=== PATIENT | female | born 1985 ===

== ENCOUNTER 2021-06-29 00:47 | Emergency (ER) | payer SELFPAY ==
[2021-06-29 00:57] VITALS: BP 118/74
[2021-06-29] MEDS ORDERED: IBUPROFEN 600 MG TAB PO ONE (05:01)
[2021-06-29] MEDS ORDERED: predniSONE 20 MG TAB PO ONE (05:01)
[2021-06-29] MEDS ORDERED: ONDANSETRON 4 MG ODT TAB PO ONE (05:01)
--- NOTE | 2021-06-29 05:15 | Emergency Department Report ---
ED Extremity Problem HPI - General Chief complaint: Extremity Injury, Upper Stated complaint: ELECTRICITY IN LEFT WRIST/RIGHT WRIST PAIN Source: patient Mode of arrival: Ambulatory Limitations: No Limitations - History of Present Illness Initial comments: Patient is a 36-year-old female with past medical history of chronic bilateral wrist and hand carpal tunnel syndrome presents to the ED with acute exacerbation of her chronic wrist pain that radiates distally to the tip of her thumb and middle and index fingers bilaterally for the last 1 month, worse in the last 2 days. Patient states that any physical activity with the hand makes the pain worse. Patient states that she works between the 11 PM to 6 AM and using her hand the pain gets worse. Patient also request to be referred to an orthopedic surgeon for further evaluation of her chronic bilateral carpal tunnel syndrome. Patient denies dizziness, syncope, fall, traumatic injury, numbness and tingling or weakness of upper and lower extremities bilaterally, chest pain, shortness of breath, neck pain or headache. MD Complaint: extremity pain (Bilateral wrist joint pain that radiates distally to the hands bilaterally), joint paint (Bilateral wrist joint pain, history of chronic carpal tunnel syndrome) -: Gradual, year(s) (1) Location: other (Bilateral wrist joint pain) History of Same: Yes (History of chronic bilateral carpal tunnel syndrome) -: Yes arthralgia (Bilateral wrist pain), No fever, No associated dyspnea, No associated chest pain Radiation: distal Severity scale (0 -10): 8 Quality: aching, sharp Consistency: constant Improves with: nothing Worsens with: weight bearing, exertion, palpation Associated Symptoms: denies other symptoms, arthralgias (Bilateral wrist pain). denies: chest pain, shortness of breath, fever, myalgias, rash - Related Data Previous Rx's Medication Instructions Recorded Last Taken Type Gabapentin 300 mg PO BID #60 cap 06/29/21 Unknown Rx Naproxen 500 mg PO Q12H #30 tab 06/29/21 Unknown Rx predniSONE [Deltasone] 60 mg PO QDAY #15 tab 06/29/21 Unknown Rx Allergies Allergy/AdvReac Type Severity Reaction Status Date / Time No Known Allergies Allergy Verified 06/29/21 05:09 ED Review of Systems ROS: Stated complaint: ELECTRICITY IN LEFT WRIST/RIGHT WRIST PAIN Other details as noted in HPI Constitutional: denies: chills, fever Eyes: denies: eye pain, eye discharge, vision change ENT: denies: ear pain, throat pain Respiratory: denies: cough, shortness of breath, wheezing Cardiovascular: denies: chest pain, palpitations Endocrine: no symptoms reported Gastrointestinal: denies: abdominal pain, nausea, diarrhea Genitourinary: denies: urgency, dysuria, discharge Musculoskeletal: arthralgia (Bilateral wrist and hand pain). denies: back pain, joint swelling Skin: denies: rash, lesions Neurological: denies: headache, weakness, paresthesias Psychiatric: denies: anxiety, depression Hematological/Lymphatic: denies: easy bleeding, easy bruising ED Past Medical Hx - Past Medical History Previous Medical History?: Yes Additional medical history: Bilateral carpal tunnel syndrome - Medications Home Medications: Home Medications Medication Instructions Recorded Confirmed Last Taken Type Gabapentin 300 mg PO BID #60 cap 06/29/21 Unknown Rx Naproxen 500 mg PO Q12H #30 tab 06/29/21 Unknown Rx predniSONE [Deltasone] 60 mg PO QDAY #15 tab 06/29/21 Unknown Rx ED Physical Exam - General Limitations: No Limitations General appearance: alert, in no apparent distress - Head Head exam: Present: atraumatic, normocephalic, normal inspection - Eye Eye exam: Present: normal appearance, PERRL, EOMI Pupils: Present: normal accommodation - ENT ENT exam: Present: normal exam, normal orophraynx, mucous membranes moist, TM's normal bilaterally, normal external ear exam - Neck Neck exam: Present: normal inspection, full ROM. Absent: tenderness, meningismus - Respiratory Respiratory exam: Present: normal lung sounds bilaterally. Absent: respiratory distress, wheezes, rales, rhonchi, chest wall tenderness, accessory muscle use, decreased breath sounds, other - Cardiovascular Cardiovascular Exam: Present: regular rate, normal rhythm, normal heart sounds. Absent: systolic murmur, diastolic murmur, rubs, gallop - GI/Abdominal GI/Abdominal exam: Present: soft, normal bowel sounds. Absent: tenderness, guarding, rebound, hyperactive bowel sounds, hypoactive bowel sounds - Extremities Exam Extremities exam: Present: normal inspection, full ROM, tenderness (Palpable reproducible bilateral wrist and hand tenderness; positive Tinel's test bilaterally), normal capillary refill. Absent: pedal edema, joint swelling, calf tenderness - Back Exam Back exam: Present: normal inspection, full ROM. Absent: tenderness, CVA tenderness (R), CVA tenderness (L), paraspinal tenderness, vertebral tenderness - Neurological Exam Neurological exam: Present: alert, oriented X3, CN II-XII intact, normal gait, reflexes normal - Psychiatric Psychiatric exam: Present: normal affect, normal mood - Skin Skin exam: Present: warm, dry, intact, normal color. Absent: rash ED Course Vital Signs 06/29/21 06/29/21 00:52 00:56 Temperature 98.3 F Pulse Rate 93 H Respiratory 16 Rate Blood Pressure 118/74 [Left] O2 Sat by Pulse 99 Oximetry ED Medical Decision Making - Medical Decision Making This is a 36-year-old female with past medical history of chronic bilateral wrist and hand carpal tunnel syndrome presents to the ED with acute exacerbation of her chronic wrist pain that radiates distally to the tip of her thumb and middle and index fingers bilaterally for the last 1 month, worse in the last 2 days. Patient states that any physical activity with the hand makes the pain worse. Patient states that she works between the 11 PM to 6 AM and using her hand the pain gets worse. Patient also request to be referred to an orthopedic surgeon for further evaluation of her chronic bilateral carpal tunnel syndrome. In the ED, patient is alert and oriented x3 and is not in any distress. Patient was treated in the ED for pain and was discharged home on medications given a referral to the orthopedic surgeon Dr. Ayers for further evaluation. Patient is advised return to the ED immediately if symptoms get worse, otherwise follow-up with the orthopedic surgeon Dr. Ayers for further evaluation and her primary care physician in 7 to 10 days for reevaluation. - Differential Diagnosis Carpal tunnel syndrome; wrist tendinitis; hand tendinitis; muscle strain Critical care attestation.: If time is entered above; I have spent that time in minutes in the direct care of this critically ill patient, excluding procedure time. ED Disposition Clinical Impression: Severe carpal tunnel syndrome of both wrists, Tendinitis of both wrists Disposition: 01 HOME / SELF CARE / HOMELESS Is pt being admited?: No Does the pt Need Aspirin: No Condition: Stable Instructions: Tendinitis, [id number], Carpal Tunnel Syndrome, [id number] Additional Instructions: Take medication with food, drink plenty of fluids and follow-up with the orthopedic surgeon Dr. Ayers as advised. Consider following up with your primary care physician in 7 to 10 days for reevaluation. Return to the ED immediately if symptoms get worse Prescriptions: predniSONE [Deltasone] 60 mg PO QDAY #15 tab Gabapentin 300 mg PO BID #60 cap Naproxen 500 mg PO Q12H #30 tab Referrals: DIEGO AEYRS MD [Staff Physician] - 3-5 Days JARAD WAGNER MD [Staff Physician] - 7-10 days Forms: Work/School Release Form(ED) Time of Disposition: 05:17 Print Language: [id number]
== END 2021-06-29 05:48 | disposition home or self-care (01) ==
LOC: ED 00:47
DX: G56.03 Carpal tunnel syndrome, bilateral upper limbs (principal); M77.9 Enthesopathy, unspecified; Z98.890 Other specified postprocedural states; Z79.899 Other long term (current) drug therapy
CPT/HCPCS: 99282; J3490; Q0162